=== PATIENT | female | born 1965 | race Hispanic/Latino ===

== ENCOUNTER 2020-04-14 19:54 | Emergency (ER) | payer OTHER ==
[2020-04-14] MEDS ORDERED: LIDOCAINE HCL-MPF 1% 2ML VIAL ONE (20:11)
[2020-04-14] MEDS ORDERED: CEFTRIAXONE SODIUM 1 GM ONE (20:11)
[2020-04-14] MEDS ORDERED: ACETAMINOPHEN-CODEINE 300/30MG TAB ONE (20:12)
== END 2020-04-14 20:37 | disposition home or self-care (01) ==
LOC: EDH 19:54
DX: H66.91 Otitis media, unspecified, right ear (principal); I10 Essential (primary) hypertension; Z98.890 Other specified postprocedural states
CPT/HCPCS: 96372; 99283; J0696; J3490

== ENCOUNTER 2020-06-06 14:15 | Emergency (ER) | payer MEDICAID, OTHER ==
[2020-06-06] MEDS ORDERED: KETOROLAC TROMETHAMINE 60 MG/2 ML VIAL ONE (14:38)
== END 2020-06-06 15:27 | disposition home or self-care (01) ==
LOC: EDH 14:15
DX: S62.655A Nondisplaced fracture of middle phalanx of left ring finger, initial encounter for closed fracture (principal); I10 Essential (primary) hypertension; Z98.890 Other specified postprocedural states; W23.0XXA Caught, crushed, jammed, or pinched between moving objects, initial encounter; Y93.89 Activity, other specified; Y92.89 Other specified places as the place of occurrence of the external cause; Y99.8 Other external cause status
CPT/HCPCS: 73140; 96372; 99283; J1885

== ENCOUNTER 2020-10-18 19:26 | Emergency (ER) | payer MEDICAID, OTHER ==
[~2020-10-18] VITALS: Ht 157.5 cm; Wt 86.2 kg
[2020-10-18 19:56] VITALS: BP 166/84
[2020-10-18] MEDS ORDERED: HYDROCODONE/ACETAMINOPHEN 5/325 MG TAB PO ONE (20:00)
[2020-10-18] MEDS ORDERED: ORPHENADRINE CITRATE 30 MG/ML ML IM ONE (20:00)
[2020-10-18 20:06] LABS: BASOPHILS % (AUTO) 0.5 % (0.0-5.0); EOSINOPHILS % (AUTO) 2.6 % (0.0-8.0); HEMATOCRIT 40.8 % (36-48); MEAN CORPUSCULAR HEMOGLOBIN 29.9 pg (27.0-33.0); MEAN CORPUSCULAR HGB CONC 33.6 g/dL (32.0-36.0); MEAN CORPUSCULAR VOLUME 89.1 fL (79-99); MONOCYTES % (AUTO) 8.3 % (3.0-13.0); NEUTROPHILS % (AUTO) 66.4 % (40.0-77.0); PLATELET COUNT (AUTO) 230 K/uL (130-400); RED BLOOD CELL COUNT(AUTO) 4.58 MIL/uL (4.00-5.50); RED CELL DISTRIBUTION WIDTH 12.6 % (11.0-15.5); WHITE BLOOD COUNT (AUTO) 6.5 K/uL (4.8-10.8)
[2020-10-18 20:17] LABS: CREATININE 0.7 mg/dL (0.5-1.5); POTASSIUM 3.2 mmol/L (3.5-5.1)
[2020-10-18 20:22] LABS: ALBUMIN 3.9 g/dL (3.5-5.0); BILIRUBIN,TOTAL 0.3 mg/dL (0.2-1.0); TOTAL PROTEIN, SERUM 7.5 g/dL (6.0-8.3)
[2020-10-18 20:52] LABS: APPEARANCE,URINE Clear (CLEAR); BILIRUBIN,URINE Negative (NEGATIVE); COLOR,URINE Yellow (YELLOW); GLUCOSE, URINE (UA) Negative (NEGATIVE); KETONES,URINE Negative (NEGATIVE); LEUKOCYTE ESTERASE ,URINE Moderate (NEGATIVE); NITRATE,URINE Negative (NEGATIVE); OCCULT BLOOD,URINE Trace (NEGATIVE); PH,URINE 6.5 (5.0-8.0); PROTEIN,URINE Negative (NEGATIVE)
[2020-10-18 21:13] LABS: BACTERIA,URINE Moderate /HPF (None Seen); MUCUS,URINE Few LPF (None Seen); SQUAMOUS EPITHELIAL CELL,UR Moderate /HPF (0-2)
[2020-10-18] MEDS ORDERED: 0.9% NACL 500ML IV.SOLN 500 ML IV ONE (22:00)
[2020-10-18] MEDS ORDERED: KCL 20 MEQ ERTAB PO ONE (22:00)
[2020-10-18] MEDS ORDERED: CEFTRIAXONE 1G VIAL IVP ONE (22:00)
[2020-10-18] MEDS ORDERED: ONDA4TAB10 PO (22:52)
[2020-10-18] MEDS ORDERED: MACR100 PO (22:52)
[2020-10-18] MEDS ORDERED: PRED20TA3 PO (22:52)
== END 2020-10-18 23:12 | disposition home or self-care (01) ==
LOC: EDH 19:26
DX: N39.0 Urinary tract infection, site not specified (principal); M13.811 Other specified arthritis, right shoulder; E86.0 Dehydration; E87.6 Hypokalemia; I10 Essential (primary) hypertension; Z79.899 Other long term (current) drug therapy
CPT/HCPCS: 36415; 70450; 72125; 73030; 80053; 81001; 82550; 83690; 84484; 85025; 87088; 93005; 96361; 96372; 96374; 99285; J0696; J2360; J7040

== ENCOUNTER 2020-12-17 20:49 | Emergency (ER) | payer OTHER ==
[~2020-12-17] VITALS: Ht 157.5 cm; Wt 85.7 kg
[~2020-12-17 20:49] MED LIST: MACR100 PO; ONDA4TAB10 PO; PRED20TA3 PO
[2020-12-17] MEDS ORDERED: DiphenhydrAMINE HCL 50 MG/ML VIAL IM ONE (22:00)
[2020-12-17] MEDS ORDERED: FAMOTIDINE 20MG TAB PO ONE (22:00)
[2020-12-17] MEDS ORDERED: PREDNISONE 20 MG TABLET PO ONE (22:00)
[2020-12-17] MEDS ORDERED: PRED20TA3 PO (22:02)
[2020-12-17 22:04] VITALS: BP 144/91
== END 2020-12-17 22:29 | disposition home or self-care (01) ==
LOC: EDH 20:49
DX: L50.9 Urticaria, unspecified (principal); I10 Essential (primary) hypertension; Z79.52 Long term (current) use of systemic steroids; Z79.899 Other long term (current) drug therapy
CPT/HCPCS: 96372; 99283; J1200

== ENCOUNTER 2021-07-31 23:40 | Emergency (ER) | payer OTHER ==
[~2021-07-31] VITALS: Ht 160 cm; Wt 87.1 kg
[2021-07-31 23:51] VITALS: BP 184/81
[2021-08-01] MEDS ORDERED: HYDR28.32 TP (00:18)
[2021-08-01] MEDS ORDERED: HYD25 PO (00:18)
[2021-08-01] MEDS ORDERED: HYDROXYZINE 25 MG TABLET ONE (00:23)
[2021-08-01] MEDS ORDERED: LIDOCAINE/PRILOCAINE CREAM 5GM TUBE TP SCH (00:30)
[2021-08-01] MEDS ORDERED: HYDROCORTISONE 1% CREAM 28G TP SCH (00:30)
[2021-08-01] MEDS ORDERED: HYDROXYZINE 50MG VIAL 50 MG/ML VIAL IM SCH (00:30)
== END 2021-08-01 00:32 | disposition home or self-care (01) ==
LOC: EDH 23:40
DX: S80.862A Insect bite (nonvenomous), left lower leg, initial encounter (principal); E11.9 Type 2 diabetes mellitus without complications; I10 Essential (primary) hypertension; Z79.899 Other long term (current) drug therapy; Z98.890 Other specified postprocedural states; W57.XXXA Bitten or stung by nonvenomous insect and other nonvenomous arthropods, initial encounter; Y93.89 Activity, other specified; Y92.89 Other specified places as the place of occurrence of the external cause; Y99.8 Other external cause status
CPT/HCPCS: 96372; 99283; J3490; J3410

== ENCOUNTER 2021-11-13 14:41 | Emergency (ER) | payer BC, OTHER ==
[~2021-11-13] VITALS: Ht 165.1 cm; Wt 86.2 kg
[~2021-11-13 14:41] MED LIST changes: +HYD25 PO; +HYDR28.32 TP
[2021-11-13 14:43] VITALS: BP 134/75
[2021-11-13] MEDS ORDERED: METH4TAB3 PO (17:44)
== END 2021-11-13 18:11 | disposition home or self-care (01) ==
LOC: EDH 14:41
DX: R51.9 Headache, unspecified (principal); M79.18 Myalgia, other site; M54.2 Cervicalgia; E11.9 Type 2 diabetes mellitus without complications; I10 Essential (primary) hypertension; Z79.52 Long term (current) use of systemic steroids; W57.XXXA Bitten or stung by nonvenomous insect and other nonvenomous arthropods, initial encounter; Y93.89 Activity, other specified; Y92.89 Other specified places as the place of occurrence of the external cause; Y99.8 Other external cause status
CPT/HCPCS: 70450

== ENCOUNTER 2022-04-28 03:23 | Emergency (ER) | payer BC ==
[~2022-04-28] VITALS: Ht 160 cm; Wt 86.2 kg
[~2022-04-28 03:23] MED LIST changes: +METH4TAB3 PO
[2022-04-28] MEDS ORDERED: CYCL10TA16 PO (03:45)
[2022-04-28] MEDS ORDERED: NAPR-1180 PO (03:45)
[2022-04-28] MEDS ORDERED: OXYC-38 PO (03:45)
[2022-04-28] MEDS ORDERED: ONDANSETRON ODT 4MG TAB SL ONE (04:00)
[2022-04-28] MEDS ORDERED: ORPHENADRINE CITRATE 30 MG/ML ML IM ONE (04:00)
[2022-04-28] MEDS ORDERED: MORPHINE 4 MG SYG IM ONE (04:00)
[2022-04-28 04:12] VITALS: BP 138/74
== END 2022-04-28 04:28 | disposition home or self-care (01) ==
LOC: EDH 03:23
DX: M62.838 Other muscle spasm (principal); E11.9 Type 2 diabetes mellitus without complications; I10 Essential (primary) hypertension; Z79.52 Long term (current) use of systemic steroids
CPT/HCPCS: 99284; 96372 ×2; J2270; J2360

== ENCOUNTER 2022-06-17 16:47 | Emergency (ER) | payer BC, OTHER ==
[~2022-06-17] VITALS: Ht 152.4 cm; Wt 85.7 kg
[~2022-06-17 16:47] MED LIST changes: +CYCL10TA16 PO; +NAPR-1180 PO; +OXYC-38 PO
[2022-06-17 18:05] LABS: BASOPHILS % (AUTO) 0.3 % (0.0-5.0); EOSINOPHILS % (AUTO) 2.4 % (0.0-8.0); HEMATOCRIT 39.5 % (36-48); LYMPHOCYTES % (AUTO) 21.8 % (21.0-51.0); MEAN CORPUSCULAR HEMOGLOBIN 29.6 pg (27.0-33.0); MEAN CORPUSCULAR HGB CONC 33.2 g/dL (32.0-36.0); MEAN CORPUSCULAR VOLUME 89.4 fL (79-99); MONOCYTES % (AUTO) 8.3 % (3.0-13.0); NEUTROPHILS % (AUTO) 66.9 % (40.0-77.0); PLATELET COUNT (AUTO) 249 K/uL (130-400); RED BLOOD CELL COUNT(AUTO) 4.42 MIL/uL (4.00-5.50); RED CELL DISTRIBUTION WIDTH 12.7 % (11.0-15.5); WHITE BLOOD COUNT (AUTO) 5.9 K/uL (4.8-10.8)
[2022-06-17 18:26] LABS: POTASSIUM 3.3 mmol/L (3.5-5.1)
[2022-06-17 18:31] LABS: ALBUMIN 3.9 g/dL (3.5-5.0)
[2022-06-17] MEDS ORDERED: CARB200C7 PO (19:41)
[2022-06-17 19:56] VITALS: BP 132/65
== END 2022-06-17 19:58 | disposition home or self-care (01) ==
LOC: EDH 16:47
DX: G50.0 Trigeminal neuralgia (principal); E11.9 Type 2 diabetes mellitus without complications; I10 Essential (primary) hypertension; Z79.52 Long term (current) use of systemic steroids
CPT/HCPCS: 36415; 80053; 85025

== ENCOUNTER 2022-09-25 | Emergency (ER) | payer BC ==
[~2022-09-25] VITALS: Ht 157.5 cm; Wt 87.1 kg
[~2022-09-25] MED LIST changes: +CARB200C7 PO
[2022-09-25] MEDS ORDERED: KETOROLAC 60 MG VIAL (30MG/ML) IM ONE (00:30)
[2022-09-25] MEDS ORDERED: IBUP-1493 PO (00:36)
[2022-09-25] MEDS ORDERED: LIDOP TD (00:59)
[2022-09-25 01:06] VITALS: BP 147/71; PULSE 62; RESP 16; O2SAT 98
== END 2022-09-25 01:07 | disposition home or self-care (01) ==
LOC: EDH
DX: R07.89 Other chest pain (principal); E11.9 Type 2 diabetes mellitus without complications; I10 Essential (primary) hypertension; Z79.1 Long term (current) use of non-steroidal anti-inflammatories (NSAID); Z79.52 Long term (current) use of systemic steroids; W18.39XA Other fall on same level, initial encounter; Y93.01 Activity, walking, marching and hiking; Y92.89 Other specified places as the place of occurrence of the external cause; Y99.8 Other external cause status
CPT/HCPCS: 99284; 71101; 96372; J1885

== ENCOUNTER 2022-11-26 12:34 | Emergency (ER) | payer BC ==
[~2022-11-26] VITALS: Ht 160 cm; Wt 88.0 kg
[~2022-11-26 12:34] MED LIST changes: +IBUP-1493 PO; +LIDOP TD
[2022-11-26 14:14] VITALS: BP 144/60; PULSE 49; RESP 16; O2SAT 97
== END 2022-11-26 14:15 | disposition home or self-care (01) ==
LOC: EDH 12:34
DX: M25.562 Pain in left knee (principal); I10 Essential (primary) hypertension; E11.9 Type 2 diabetes mellitus without complications; Z79.899 Other long term (current) drug therapy; Z98.890 Other specified postprocedural states; W10.8XXA Fall (on) (from) other stairs and steps, initial encounter; Y93.89 Activity, other specified; Y92.89 Other specified places as the place of occurrence of the external cause; Y99.8 Other external cause status
CPT/HCPCS: 73562

== ENCOUNTER 2023-04-01 17:41 | Emergency (ER) | payer BC ==
[~2023-04-01] VITALS: Ht 157.5 cm; Wt 86.2 kg
[2023-04-01 18:58] LABS: BASOPHILS # (AUTO) 0.02 K/uL (0.00-0.20); BASOPHILS % (AUTO) 0.3 % (0.0-5.0); EOSINOPHILS # (AUTO) 0.16 K/uL (0.00-0.70); EOSINOPHILS % (AUTO) 2.8 % (0.0-8.0); HEMATOCRIT 42.4 % (36-48); IMMATURE GRANULOCYTE ABSOLUTE 0.01 K/uL (0-1); LYMPHOCYTES # (AUTO) 0.8 K/uL (1.0-4.8); LYMPHOCYTES % (AUTO) 14.3 % (21.0-51.0); MEAN CORPUSCULAR HEMOGLOBIN 30.2 pg (27.0-33.0); MEAN CORPUSCULAR HGB CONC 32.1 g/dL (32.0-36.0); MEAN CORPUSCULAR VOLUME 94.2 fL (79-99); MONOCYTES # (AUTO) 0.6 K/uL (0.1-1.0); MONOCYTES % (AUTO) 9.6 % (3.0-13.0); NEUTROPHILS # (AUTO) 4.2 K/uL (1.8-7.7); NEUTROPHILS % (AUTO) 72.8 % (40.0-77.0); PLATELET COUNT (AUTO) 186 K/uL (130-400); RED CELL DISTRIBUTION WIDTH 13.7 % (11.0-15.5); WHITE BLOOD COUNT (AUTO) 5.7 K/uL (4.8-10.8)
[2023-04-01 19:09] LABS: CREATININE 1.1 mg/dL (0.5-1.5); POTASSIUM 3.4 mmol/L (3.5-5.1)
[2023-04-01 19:23] LABS: ALBUMIN 3.4 g/dL (3.5-5.0); BILIRUBIN,TOTAL 0.6 mg/dL (0.2-1.0); TOTAL PROTEIN, SERUM 6.6 g/dL (6.0-8.3)
[2023-04-02 00:58] LABS: ADD UA MICROSCOPIC YES; APPEARANCE,URINE CLOUDY (CLEAR); BILIRUBIN,URINE NEGATIVE (NEGATIVE); COLOR,URINE YELLOW (YELLOW); GLUCOSE, URINE (UA) NEGATIVE (NEGATIVE); KETONES,URINE NEGATIVE (NEGATIVE); LEUKOCYTE ESTERASE ,URINE 500 Leu/uL (NEGATIVE); NITRATE,URINE NEGATIVE (NEGATIVE); OCCULT BLOOD,URINE NEGATIVE (NEGATIVE); PROTEIN,URINE NEGATIVE (NEGATIVE); UROBILINOGEN,URINE 0.2 mg/dL (0.2-1.0)
[2023-04-02 01:02] LABS: BACTERIA,URINE RARE /HPF (None Seen); MUCUS,URINE FEW LPF (None Seen); OTHER CASTS, URINE 5 /LPF (None Seen); SQUAMOUS EPITHELIAL CELL,UR FEW /HPF (0-2); WBC,URINE 51-100 /HPF (0-1)
[2023-04-02] MEDS: ONDANSETRON ODT 4MG TAB SL ONE (01:06)
[2023-04-02] MEDS: KCL 20 MEQ ERTAB PO ONE (01:07)
[2023-04-02 01:15] LABS: SARS-CoV-2, RNA, NAAT NEGATIVE SARS CoV-2 (NEGATIVE)
[2023-04-02 01:19] LABS: INFLUENZA TYPE A Negative For Type A (NEGATIVE); INFLUENZA TYPE B Negative For Type B (NEGATIVE)
[2023-04-02] MEDS: HALOPERIDOL INJ 5 MG/ML VIAL IM SCH (02:10)
[2023-04-02 02:41] VITALS: BP 117/65; PULSE 85; RESP 16; O2SAT 96
[2023-04-02] MEDS ORDERED: OMEP40CA21 PO (03:05)
[2023-04-02] MEDS ORDERED: ONDA-104 PO (03:05)
== END 2023-04-02 03:28 | disposition home or self-care (01) ==
LOC: EDH 17:41
DX: K80.20 Calculus of gallbladder without cholecystitis without obstruction (principal); R11.2 Nausea with vomiting, unspecified; E11.9 Type 2 diabetes mellitus without complications; I10 Essential (primary) hypertension; Z79.1 Long term (current) use of non-steroidal anti-inflammatories (NSAID); Z79.52 Long term (current) use of systemic steroids; Z20.822 Contact with and (suspected) exposure to COVID-19
CPT/HCPCS: 99284; 87635; 84484; 80053; 83690; 85025; 87088; 87804 ×2; 81001; 36415; 93005; 76705; 96372; J1630

== ENCOUNTER 2023-06-14 10:54 | Emergency (ER) | payer BC ==
[~2023-06-14] VITALS: Ht 157.5 cm; Wt 83.5 kg
[~2023-06-14 10:54] MED LIST changes: -CYCL10TA16 PO; -HYD25 PO; -IBUP-1493 PO; -MACR100 PO; -METH4TAB3 PO; -NAPR-1180 PO; +OMEP40CA21 PO; +ONDA-104 PO; -ONDA4TAB10 PO; -PRED20TA3 PO
[2023-06-14 13:16] LABS: BASOPHILS # (AUTO) 0.02 K/uL (0.00-0.20); BASOPHILS % (AUTO) 0.2 % (0.0-5.0); EOSINOPHILS # (AUTO) 0.11 K/uL (0.00-0.70); EOSINOPHILS % (AUTO) 1.1 % (0.0-8.0); HEMATOCRIT 39.1 % (36-48); IMMATURE GRANULOCYTE ABSOLUTE 0.03 K/uL (0-1); LYMPHOCYTES # (AUTO) 0.9 K/uL (1.0-4.8); LYMPHOCYTES % (AUTO) 9.5 % (21.0-51.0); MEAN CORPUSCULAR HEMOGLOBIN 30.3 pg (27.0-33.0); MEAN CORPUSCULAR VOLUME 89.1 fL (79-99); MONOCYTES # (AUTO) 0.6 K/uL (0.1-1.0); MONOCYTES % (AUTO) 5.7 % (3.0-13.0); NEUTROPHILS # (AUTO) 8.1 K/uL (1.8-7.7); NEUTROPHILS % (AUTO) 83.2 % (40.0-77.0); PLATELET COUNT (AUTO) 220 K/uL (130-400); RED BLOOD CELL COUNT(AUTO) 4.39 MIL/uL (4.00-5.50); RED CELL DISTRIBUTION WIDTH 12.2 % (11.0-15.5); WHITE BLOOD COUNT (AUTO) 9.7 K/uL (4.8-10.8)
[2023-06-14 13:18] LABS: APPEARANCE,URINE CLEAR (CLEAR); BILIRUBIN,URINE SMALL mg/dL (NEGATIVE); COLOR,URINE YELLOW (YELLOW); GLUCOSE, URINE (UA) NEGATIVE (NEGATIVE); KETONES,URINE 5 mg/dL (NEGATIVE); LEUKOCYTE ESTERASE ,URINE SMALL Leu/uL (NEGATIVE); NITRATE,URINE NEGATIVE (NEGATIVE); OCCULT BLOOD,URINE NEGATIVE (NEGATIVE); PH,URINE 5.5 (5.0-8.0); PROTEIN,URINE TRACE mg/dL (NEGATIVE)
[2023-06-14 13:21] LABS: ADD UA MICROSCOPIC YES
[2023-06-14 13:33] LABS: CREATININE 0.7 mg/dL (0.5-1.0); POTASSIUM 3.2 mmol/L (3.5-5.1)
[2023-06-14 13:37] LABS: ALBUMIN 3.5 g/dL (3.5-5.0); BILIRUBIN,TOTAL 0.4 mg/dL (0.2-1.0); TOTAL PROTEIN, SERUM 6.8 g/dL (6.0-8.3)
[2023-06-14 13:39] LABS: BACTERIA,URINE Few /HPF (None Seen); MUCUS,URINE Moderate LPF (None Seen); RBC,URINE 0-1 /HPF (0-1); SQUAMOUS EPITHELIAL CELL,UR 0-2 /HPF (0-2)
[2023-06-14] MEDS: KETOROLAC 30MG VIAL (30MG/ML) IM ONE (14:09)
[2023-06-14] MEDS: ONDANSETRON 4MG TABLET PO ONE (14:09)
[2023-06-14 15:04] VITALS: BP 144/96; PULSE 82; RESP 17; O2SAT 95
== END 2023-06-14 15:05 | disposition home or self-care (01) ==
LOC: EDH 10:54
DX: K80.50 Calculus of bile duct without cholangitis or cholecystitis without obstruction (principal); E11.9 Type 2 diabetes mellitus without complications; I10 Essential (primary) hypertension
CPT/HCPCS: 99284; 74176; 80053; 83690; 85025; 81001; 36415; 96372; Q0162; J1885

== ENCOUNTER 2024-05-04 18:08 | Emergency (ER) | payer BC ==
[~2024-05-04] VITALS: Ht 154.9 cm; Wt 84.4 kg
--- NOTE | 2024-05-04 18:18 | EKG ---
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
[2024-05-04 18:37] LABS: BASOPHILS # (AUTO) 0.03 K/uL (0.00-0.20); BASOPHILS % (AUTO) 0.5 % (0.0-5.0); EOSINOPHILS # (AUTO) 0.09 K/uL (0.00-0.70); EOSINOPHILS % (AUTO) 1.4 % (0.0-8.0); HEMATOCRIT 42.6 % (36-48); IMMATURE GRANULOCYTE ABSOLUTE 0.02 K/uL (0-1); LYMPHOCYTES # (AUTO) 1.4 K/uL (1.0-4.8); LYMPHOCYTES % (AUTO) 21.4 % (21.0-51.0); MEAN CORPUSCULAR HEMOGLOBIN 30.4 pg (27.0-33.0); MEAN CORPUSCULAR HGB CONC 33.8 g/dL (32.0-36.0); MEAN CORPUSCULAR VOLUME 89.9 fL (79-99); MONOCYTES # (AUTO) 0.4 K/uL (0.1-1.0); MONOCYTES % (AUTO) 6.1 % (3.0-13.0); NEUTROPHILS # (AUTO) 4.5 K/uL (1.8-7.7); NEUTROPHILS % (AUTO) 70.3 % (40.0-77.0); PLATELET COUNT (AUTO) 233 K/uL (130-400); RED BLOOD CELL COUNT(AUTO) 4.74 MIL/uL (4.00-5.50); RED CELL DISTRIBUTION WIDTH 12.1 % (11.0-15.5); WHITE BLOOD COUNT (AUTO) 6.4 K/uL (4.8-10.8)
[2024-05-04 18:41] LABS: APPEARANCE,URINE CLEAR (CLEAR); BILIRUBIN,URINE NEGATIVE (NEGATIVE); COLOR,URINE COLORLESS (YELLOW); GLUCOSE, URINE (UA) NEGATIVE (NEGATIVE); KETONES,URINE NEGATIVE (NEGATIVE); LEUKOCYTE ESTERASE ,URINE NEGATIVE Leu/uL (NEGATIVE); NITRATE,URINE NEGATIVE (NEGATIVE); OCCULT BLOOD,URINE NEGATIVE (NEGATIVE); PH,URINE 7.5 (5.0-8.0); PROTEIN,URINE NEGATIVE (NEGATIVE); UROBILINOGEN,URINE 0.2 mg/dL (0.2-1.0)
[2024-05-04 18:48] LABS: CREATININE 0.7 mg/dL (0.5-1.0); POTASSIUM 3.7 mmol/L (3.5-5.1)
[2024-05-04 18:50] LABS: HCG,QUALITATIVE URINE NEGATIVE (NEGATIVE)
[2024-05-04 18:51] LABS: BACTERIA,URINE RARE /HPF (None Seen); RBC,URINE 0-1 /HPF (0-1); SQUAMOUS EPITHELIAL CELL,UR RARE /HPF (0-2)
--- NOTE | 2024-05-04 18:52 | HMCIMG ---
PORTABLE CHEST RADIOGRAPH INDICATION: Chest pain COMPARISON: None FINDINGS: Heart size is normal. The pulmonary vascularity and santana appear normal. No abnormal pulmonary parenchymal opacity or consolidation identified. No significant pleural effusion noted. No pneumothorax detected. IMPRESSION: No radiographic evidence for any acute cardiopulmonary process.
[2024-05-04 19:55] VITALS: BP 153/79; PULSE 71; RESP 18; TEMP 98.8; O2SAT 96
--- NOTE | 2024-05-04 19:59 | ERN ---
General Chief Complaint: Chest Pain Stated Complaint: CHEST PAIN Time Seen by MD: 18:12 Time Seen by Midlevel: 18:12 Source: patient History of Present Illness Initial Comments 59-year-old female presents to the emergency department due to chest pain. Patient reports pain initiated at the right ear down the neck to the chest. At the moment patient was having some difficulty breathing and pain have now subsided. Denies fever, difficulty swallowing, nausea, vomiting, vision changes, headache or further associated symptoms. PMHx HTN, DM Allergies: Coded Allergies: No Known Allergies (Unverified Allergy, Unknown, 06/06/20) Home Meds Active Scripts Ondansetron HCl (Ondansetron HCl) 4 Mg Tablet, 4 MG PO TIDP PRN for VOMITING, #20 TAB Prov:MARCOS THOMPSON MD 04/02/23 Omeprazole (Omeprazole) 40 Mg Capsule.dr, 40 MG PO DAILY, #30 CAP Prov:MARCOS THOMPSON MD 04/02/23 Lidocaine (Lidoderm Patch 5%) 1 Patch Patch, 1 PATCH TD DAILY for 30 Days, #30 ADH.PATCH 0 Refills Prov:MARCOS THOMPSON MD 09/25/22 Carbamazepine (Carbamazepine) 200 Mg Cpmp.12hr, 200 MG PO BID for 15 Days, #30 TAB Prov:KARINE DIAZ MD 06/17/22 Oxycodone HCl/Acetaminophen (Percocet 5-325 mg Tablet) 1 Each Tablet, 1 EACH PO Q6H for pain, #16 TAB 0 Refills Prov:DAVID BALL MD 04/28/22 Hydrocortisone (Hydrocortisone 1% 28.35GM) 28.35 Gm Crm, 1 STRIP TP BID, #1 APPL Prov:MASSIMO BORGES MD 08/01/21 Past Medical History Past Medical History: Diabetes-Type II, Gallstones, Hypertension Medical History Other: GASTRITIS Past Surgical History: Cholecystectomy, Family History Family History: Negative Social History Social History: Negative, Lives with family Female( History) History: Not Applicable ROS Dictation Constitutional: Negative for fever,chills, and weight loss Eyes: Negative for injury, pain,redness, and discharge ENT: Positive for right ear pain Negative for injury,pain or swelling Cardiovascular: Positive for chest pain Negative for palpitations, and edema Respiratory: Positive for difficulty breathing Negative for cough, and wheezing, Abdomen/GI: Negative for abdominal pain, nausea, vomiting, diarrhea, and constipation Back: Negative for injury and pain : Negative for painful urination, bleeding or discharge MS/Extremity: Negative for injury and deformity Skin: Negative for rash, and discoloration Neuro: Negative for headache, weakness, numbness, tingling, and seizure Psych: Negative for suicide ideation, homicidal ideation, and hallucinations Physical Exam Physical Exam Dictation General: awake, alert, no acute distress Head/Face: Normocephalic, atraumatic Eyes: PERRL, EOMI, normal conjunctiva ENT: oral cavity clear, TMs clear, oral mucosa moist Neck: Supple, normal range of motion Cardiovascular: RRR, normal S1/S2 Respiratory: CTAB, no respiratory distress, no rales or wheezes Abdomen: Soft, non-tender, non-distended, no guarding or rebound. Skin: Warm, dry, normal turgor, no rash MS/Extremity: Pulses equal, no cyanosis, neurovascular intact, FROM Neuro: COAx4, GCS 15, strength 5/5, CN 2-12 intact, normal cerebellar exam, normal gait, Psych: Normal behavior, mood, and affect normal Results Laboratory and Microbiology Lab and Micro Result Laboratory Tests Test 05/04/24 18:10 05/04/24 18:20 05/04/24 19:13 Sodium Level 140 mmol/L (136-145) Potassium Level 3.7 mmol/L (3.5-5.1) Chloride Level 99 mmol/L (101-111) L Carbon Dioxide Level 32 mmol/L (21-32) Blood Urea Nitrogen 16 mg/dL (7-18) Creatinine 0.7 mg/dL (0.5-1.0) Glomerular Filtration Rate Calc 101 mL/min (>90) Random Glucose 168 mg/dL (70-105) H Total Calcium 9.6 mg/dL (8.5-10.1) White Blood Count 6.4 K/uL (4.8-10.8) Red Blood Count 4.74 MIL/uL (4.00-5.50) Hemoglobin 14.4 g/dL (12.0-16.0) Hematocrit 42.6 % (36-48) Mean Corpuscular Volume 89.9 fL (79-99) Mean Corpuscular Hemoglobin 30.4 pg (27.0-33.0) Mean Corpuscular Hemoglobin Concent 33.8 g/dL (32.0-36.0) Red Cell Distribution Width 12.1 % (11.0-15.5) Platelet Count 233 K/uL (130-400) Mean Platelet Volume 11.6 fL (7.5-10.5) H Immature Granulocyte % (Auto) 0.3 % (0-1) Neutrophils (%) (Auto) 70.3 % (40.0-77.0) Lymphocytes (%) (Auto) 21.4 % (21.0-51.0) Monocytes (%) (Auto) 6.1 % (3.0-13.0) Eosinophils (%) (Auto) 1.4 % (0.0-8.0) Basophils (%) (Auto) 0.5 % (0.0-5.0) Neutrophils # (Auto) 4.5 K/uL (1.8-7.7) Lymphocytes # (Auto) 1.4 K/uL (1.0-4.8) Monocytes # (Auto) 0.4 K/uL (0.1-1.0) Eosinophils # (Auto) 0.09 K/uL (0.00-0.70) Basophils # (Auto) 0.03 K/uL (0.00-0.20) Absolute Immature Granulocyte (auto 0.02 K/uL (0-1) Nucleated Red Blood Cells 0.0 % (0.0-0.19) Urine Color COLORLESS (YELLOW) Urine Appearance CLEAR (CLEAR) Urine pH 7.5 (5.0-8.0) Urine Specific [place] 1.008 (1.001-1.031) Urine Protein NEGATIVE mg/dL (NEGATIVE) Urine Glucose (UA) NEGATIVE mg/dL (NEGATIVE) Urine Ketones NEGATIVE mg/dL (NEGATIVE) Urine Occult Blood NEGATIVE (NEGATIVE) Urine Nitrate NEGATIVE (NEGATIVE) Urine Bilirubin NEGATIVE mg/dL (NEGATIVE) Urine Urobilinogen 0.2 mg/dL (0.2-1.0) Urine Leukocyte Esterase NEGATIVE Matthieu/uL Urine RBC 0-1 /HPF (0-1) Urine WBC 2-5 /HPF (0-1) H Urine Squamous Epithelial Cells RARE /HPF (0-2) Urine Bacteria RARE /HPF (None Seen) Urine HCG, Qualitative NEGATIVE (NEGATIVE) Troponin I High Sensitivity 14 ng/L (4-50) 14 ng/L (4-50) Labs Reviewed?: Yes EKG/XRAY/US/CT/MRI EKG Comment Date: 05/04/2024 Time: 18 17 Rate: 69 EKG interpretation: Normal sinus rhythm, probable left atrial enlargement, left ventricular hypertrophy, no STEMI Reviewed by ED Attending X-RAY Comment REASON: Chest pain ORDERING PHYSICIAN: DANIEL CAMARENA PROCEDURE: CXR1VW - CHEST 1VW PORTABLE CHEST RADIOGRAPH INDICATION: Chest pain COMPARISON: None FINDINGS: Heart size is normal. The pulmonary vascularity and santana appear normal. No abnormal pulmonary parenchymal opacity or consolidation identified. No significant pleural effusion noted. No pneumothorax detected. IMPRESSION: No radiographic evidence for any acute cardiopulmonary process. DICTATED BY: LEE BONILLA MD DATE: 05/04/24 1850 MDM MDM: Differential diagnosis: ID, ACS, musculoskeletal Rationale: 59-year-old female presents to the emergency department due to chest pain. Patient reports pain initiated at the right ear down the neck to the chest. At the moment patient was having some difficulty breathing and pain have now subsided. Denies fever, difficulty swallowing, nausea, vomiting, vision changes, headache or further associated symptoms. PMHx HTN, DM Per physical examination patient is in no acute distress, nonlabored breathing, abdomen is soft nontender, appears comfortable. Denies any current symptoms. Labs obtained are nonspecific, troponin within normal limits, UA negative for urinary tract infection. Chest x-ray indicates no acute abnormalities. Heart score low risk. Patient was educated on findings and diagnosis. Admission versus discharge was discussed with patient. Patient requested to be discharged and follow up outpatient with PCP. Return to the emergency department if any worsening symptoms. Patient verbalized understanding. Patient stable for discharge. There are no social concerns with this patient. I independently interpreted the test that were performed, results were reviewed by me and considered findings on radiology if ordered. Medical management and examination interpretation discussions were had by me with other qualified healthcare professionals as indicated for the patient's care. ED Course Orders Procedure Category Date Status Time Cbc With Differential LAB 05/04/24 Complete 18:12 Basic Metabolic Panel LAB 05/04/24 Complete 18:12 Urinalysis LAB 05/04/24 Complete W/Microscopic 18:12 Troponin I High LAB 05/04/24 Complete Sensitivity 18:12 ,Urine Test LAB 05/04/24 Complete 18:12 Chest 1vw RAD 05/04/24 Resulted 18:12 12 Lead Ekg Tracing- EKG 05/04/24 Complete Technical 18:12 Troponin I High LAB 05/04/24 Complete Sensitivity 19:04 Vital Signs Date Time Temp Pulse Resp B/P (MAP) Pulse Ox O2 Delivery O2 Flow Rate FiO2 05/04/24 19:55 98.8 71 18 153/79 96 Room Air* 0 21 05/04/24 19:30 98.8 71 18 170/94 99 Room Air* 0 21 05/04/24 18:31 71 18 143/82 98 Room Air* 0 21 05/04/24 18:09 98.8 74 20 163/93 99 Room Air 0 DX & DISP Disposition: Discharge Departure Impression: Primary Impression: Chest pain with low risk for cardiac etiology Condition: Stable Additional Instructions: Discharge home. Rest. Follow up with primary care DrPb in 24 hours. Return to the ER for any acute changes or worsening symptoms. If any medications were prescribed take as directed. Okay to continue home medications unless otherwise discussed during your visit in the emergency room today. Patient was also advised to follow-up with primary care physician in 1 to 2 days for continued monitoring. Referrals: DC GRIFFIN NP (PCP) I performed the substantive portion of the visit. I have reviewed and personally made and approve the management plan that is documented in the notes by myself or the VERN. I acknowledge full responsibility for the patient's management plan. DANIEL CAMARENA May 04, 2024 19:59
== END 2024-05-04 20:05 | disposition home or self-care (01) ==
LOC: EDH 18:08
DX: R07.89 Other chest pain (principal); E11.9 Type 2 diabetes mellitus without complications; I10 Essential (primary) hypertension; I21.9 Acute myocardial infarction, unspecified; Z79.899 Other long term (current) drug therapy; Z90.49 Acquired absence of other specified parts of digestive tract; Z98.890 Other specified postprocedural states
CPT/HCPCS: 36415; 71045; 80048; 81001; 81025; 84484; 85025; 93005; 99284

== ENCOUNTER 2024-05-11 08:57 | Emergency (ER) | payer BC ==
[~2024-05-11] VITALS: Ht 160 cm; Wt 85.3 kg
--- NOTE | 2024-05-11 09:04 | ERN ---
General Chief Complaint: Abdominal Pain Stated Complaint: ABDOMINAL PAIN Time Seen by MD: 09:03 History of Present Illness Initial Comments 59-year-old presents for periumbilical cramping and vomiting. Patient reports began a three and this morning. She was had multiple episodes of vomiting. No diarrhea. No fever. No cough congestion sore throat. She reports that a younger family member has similar symptoms. Allergies: Coded Allergies: No Known Allergies (Unverified Allergy, Unknown, 06/06/20) Home Meds Active Scripts Ondansetron HCl (Ondansetron HCl) 4 Mg Tablet, 4 MG PO TIDP PRN for VOMITING, #20 TAB Prov:MARCOS THOMPSON MD 04/02/23 Omeprazole (Omeprazole) 40 Mg Capsule.dr, 40 MG PO DAILY, #30 CAP Prov:MARCOS THOMPSON MD 04/02/23 Lidocaine (Lidoderm Patch 5%) 1 Patch Patch, 1 PATCH TD DAILY for 30 Days, #30 ADH.PATCH 0 Refills Prov:MARCOS THOMPSON MD 09/25/22 Carbamazepine (Carbamazepine) 200 Mg Cpmp.12hr, 200 MG PO BID for 15 Days, #30 TAB Prov:KARINE DIAZ MD 06/17/22 Oxycodone HCl/Acetaminophen (Percocet 5-325 mg Tablet) 1 Each Tablet, 1 EACH PO Q6H for pain, #16 TAB 0 Refills Prov:DAVID BALL MD 04/28/22 Hydrocortisone (Hydrocortisone 1% 28.35GM) 28.35 Gm Crm, 1 STRIP TP BID, #1 APPL Prov:MASSIMO BORGES MD 08/01/21 Past Medical History Past Medical History: Diabetes-Type II, GERD, Hypertension Medical History Other: GASTRITIS Past Surgical History: Cholecystectomy, Family History Family History: Negative Social History Social History: Negative, Lives with family Female( History) History: Not Applicable ROS Dictation CONSTITUTIONAL: No chills, no fever, no weakness, no diaphoresis, no malaise. HEAD/FACE: No signs of trauma. EENT: No eye pain, no blurred vision, no tearing, no double vision, no ear pain, no ear discharge, no nose pain, no nasal congestion, no throat pain, no throat swelling, no mouth pain. RESPIRATORY: No cough, no orthopnea, no SOB, no stridor, no wheezing. CARDIOVASCULAR: No chest pain, no edema, no palpitations, no syncope. GASTROINTESTINAL/ABDOMINAL: Abdominal pain and vomiting GENITOURINARY: No abnormal discharge, no dysuria, no frequent urination, no hematuria. No complaints of pain in the genitals. MUSCULOSKELETAL: No back pain, no gout, no joint pain, no joint swelling, no muscle pain, no muscle stiffness, no neck pain. INTEGUMENTARY: No change in color, no change in hair/nails, no dryness, no lesion, no lumps, no rash. NEUROLOGICAL/PSYCH: No anxiety, not depressed, no emotional problem, no headache, no numbness, no pre-existing deficit, no history of seizures, no tremors, no weakness. HEMATOLOGIC/LYMPHATIC: Not anemic, no history of blood clots, no apparent bleeding, no bruising, glands not swollen. All Systems Negative, Except as Noted. Physical Exam Physical Exam Dictation VITAL SIGNS: Reviewed. GENERAL APPEARANCE: Alert, oriented x3, no acute distress, obese. HEAD AND FACE: Non-traumatic. EYES: PERRL, pink conjunctivas, eyelid no trauma, anterior chamber clear. EARS: Pinnas intact and no signs of trauma or erythema. Ear canals clear and no discharge. TMs no erythema. NOSE: No discharge, no bleeding. OROPHARYNX: Mouth normal, teeth no caries, tongue pink. Pharynx clear, no erythema. Tonsils no exudates, no abscesses noted. Mucous membrane moist. NECK: Supple, non-tender, no thyromegaly, no masses, no JVD, no bruits. BREAST: Deferred. CHEST: No tenderness, no crepitus, no paradoxical movement, no retractions. LUNGS: Clear, well-ventilated, symmetric, no rales, no wheezing, no rhonchi, no stridor, good breath sounds bilaterally. HEART: Regular rate, regular rhythm, no murmur, no gallops. VASCULAR: No peripheral edema. ABDOMEN: Soft, positive bowel sounds, nondistended, no guarding, nontender, no rebound, no masses no hepatomegaly, no splenomegaly, no Agosto's sign, no hernias. RECTAL: Deferred. GENITAL: Deferred. NEUROLOGICAL: Normal speech, gross motor function intact, gross sensory function intact. MUSCULOSKELETAL: Neck nontender, full range of motion, back nontender, full range of motion. EXTREMITIES: Nontender, full range of motion. SKIN: Color pink, dry, no turgor, no rash, no lacerations, no abrasions, no contusions. LYMPHATICS: Deferred. Results Laboratory and Microbiology Lab and Micro Result Laboratory Tests Test 05/11/24 09:12 White Blood Count 15.1 K/uL (4.8-10.8) H Red Blood Count 4.88 MIL/uL (4.00-5.50) Hemoglobin 14.9 g/dL (12.0-16.0) Hematocrit 43.9 % (36-48) Mean Corpuscular Volume 90.0 fL (79-99) Mean Corpuscular Hemoglobin 30.5 pg (27.0-33.0) Mean Corpuscular Hemoglobin Concent 33.9 g/dL (32.0-36.0) Red Cell Distribution Width 12.3 % (11.0-15.5) Platelet Count 252 K/uL (130-400) Mean Platelet Volume 11.7 fL (7.5-10.5) H Immature Granulocyte % (Auto) 0.7 % (0-1) Neutrophils (%) (Auto) 87.6 % (40.0-77.0) H Lymphocytes (%) (Auto) 4.8 % (21.0-51.0) L Monocytes (%) (Auto) 6.2 % (3.0-13.0) Eosinophils (%) (Auto) 0.5 % (0.0-8.0) Basophils (%) (Auto) 0.2 % (0.0-5.0) Neutrophils # (Auto) 13.2 K/uL (1.8-7.7) H Lymphocytes # (Auto) 0.7 K/uL (1.0-4.8) L Monocytes # (Auto) 0.9 K/uL (0.1-1.0) Eosinophils # (Auto) 0.07 K/uL (0.00-0.70) Basophils # (Auto) 0.03 K/uL (0.00-0.20) Absolute Immature Granulocyte (auto 0.11 K/uL (0-1) Nucleated Red Blood Cells 0.0 % (0.0-0.19) White Cell Morphology Comment See comments Urine Color YELLOW (YELLOW) Urine Appearance CLEAR (CLEAR) Urine pH 6.0 (5.0-8.0) Urine Specific [place] 1.026 (1.001-1.031) Urine Protein 10 mg/dL (NEGATIVE) H Urine Glucose (UA) NEGATIVE mg/dL (NEGATIVE) Urine Ketones NEGATIVE mg/dL (NEGATIVE) Urine Occult Blood NEGATIVE (NEGATIVE) Urine Nitrate NEGATIVE (NEGATIVE) Urine Bilirubin NEGATIVE mg/dL (NEGATIVE) Urine Urobilinogen 0.2 mg/dL (0.2-1.0) Urine Leukocyte Esterase 25 Matthieu/uL (NEGATIVE) H Urine RBC 2-5 /HPF (0-1) H Urine WBC 2-5 /HPF (0-1) H Urine Squamous Epithelial Cells FEW /HPF (0-2) Urine Bacteria None /HPF (None Seen) Sodium Level 140 mmol/L (136-145) Potassium Level 3.6 mmol/L (3.5-5.1) Chloride Level 97 mmol/L (101-111) L Carbon Dioxide Level 34 mmol/L (21-32) H Blood Urea Nitrogen 21 mg/dL (7-18) H Creatinine 0.7 mg/dL (0.5-1.0) Glomerular Filtration Rate Calc 101 mL/min (>90) Random Glucose 179 mg/dL (70-105) H Total Calcium 9.4 mg/dL (8.5-10.1) Total Bilirubin 0.9 mg/dL (0.2-1.0) Direct Bilirubin 0.2 mg/dL (0.0-0.3) Aspartate Amino Transf (AST/SGOT) 33 U/L (10-37) Alanine Aminotransferase (ALT/SGPT) 56 U/L (12-78) Alkaline Phosphatase 88 U/L (50-136) Total Creatine Kinase 93 U/L (21-232) Total Protein 7.4 g/dL (6.0-8.3) Albumin 3.9 g/dL (3.5-5.0) Lipase 24 U/L (16-77) MDM CC: Abdominal pain and vomiting Historian: Patient Comorbidities: Diabetes type 2, hypertension, GERD, cholecystectomy, C-sections Limitations by social determinants of health: None Differential diagnosis: Gastroenteritis, surgical pathology, dehydration, other. Vital signs: Stable, remained stable here in the ER. Labs ( independently ordered and interpreted by me ): Chemistry panel shows an elevated BUN to creatinine ratio consistent with dehydration, otherwise unremarkable electrolytes. Liver enzymes are normal. CK is normal. Kidney function normal. White count is elevated 15 K, left shift. No bands. Urinalysis shows high specific gravity otherwise unremarkable. Lipase normal. CT abdomen and pelvis ( independently interpreted by me ): No acute abnormalities or surgical pathology. Treatment in ED: 1 L lactated Ringer's, Zofran. Symptoms most consistent with a viral gastritis/gastroenteritis. Patient has sick contact with similar symptoms. She was mildly dehydrated which was replaced here in the ER. She was no longer vomiting. She was p.o. tolerant. No surgical pathology no signs of SIRS or sepsis or significant dehydration. We will DC with the ondansetron and Bentyl recommend PCP follow up as needed. Patient agrees with the plan. ED Course Orders Procedure Category Date Status Time Cbc With Differential LAB 05/11/24 Complete 09:04 Ct Abdomen/Pelvis CT 05/11/24 Resulted W/Contrast 09:04 Creatine Kinase, Total LAB 05/11/24 Complete 09:04 Lipase LAB 05/11/24 Complete 09:04 Basic Metabolic Panel LAB 05/11/24 Complete 09:04 Hepatic Function Panel LAB 05/11/24 Complete 09:04 Lactated Ringers PHA 05/11/24 Complete 1000ml (Lactated 09:30 Ondansetron 4mg Inj PHA 05/11/24 Complete (Zofran 4mg Inj) 09:30 Urinalysis Profile LAB 05/11/24 Complete 10:17 Iohexol (Omnipaque) PHA 05/11/24 Complete 11:29 Current Medications Medications (Trade) Dose Ordered Sig/Rosy Route PRN Reason Start Time Stop Time Status Last Admin Dose Admin Iohexol (Omnipaque) 35,000 mg STK-MED ONCE IV 05/11/24 11:29 05/11/24 11:29 DC Lactated Ringer's 1,000 ml @ 0 mls/hr ONCE ONCE IV 05/11/24 09:30 05/11/24 09:31 DC 05/11/24 10:34 Ondansetron HCl (zoFRAN 4MG INJ) 4 mg ONCE ONCE IVP 05/11/24 09:30 05/11/24 09:31 DC 05/11/24 10:34 Vital Signs Date Time Temp Pulse Resp B/P (MAP) Pulse Ox O2 Delivery O2 Flow Rate FiO2 05/11/24 10:37 83 16 131/76 98 Room Air* 0 21 05/11/24 09:15 87 16 150/76 99 Room Air* 0 21 05/11/24 08:57 98.2 91 20 138/93 99 Room Air 0 DX & DISP Disposition: Discharge Departure Impression: Primary Impression: Gastroenteritis Additional Impression: Mild dehydration Condition: Stable Scripts Dicyclomine HCl (Bentyl) 20 Mg Tab 1 TAB PO BID for irritable bowel symptoms for 5 Days, #20 TAB 0 Refills Prov: JACINTA HOLCOMB DO 05/11/24 Ondansetron (Ondansetron Odt) 4 Mg Tab.rapdis 1 TAB PO Q6HPRN PRN for nausea/vomiting for 3 Days, #9 TAB 0 Refills Prov: JACINTA HOLCOMB DO 05/11/24 Additional Instructions: Your symptoms are consistent with a gastroenteritis, which is often a viral infection that we will go away on its own. Your vital signs have been stable. Your blood work ( CBC, BMP, liver function tests, lipase ) shows mild dehydration but is otherwise unremarkable. The CT scan of your abdomen and pelvis does not show any dangerous findings. I have prescribed ondansetron dissolvable tabs to use as needed for nausea and vomiting. I have prescribed Bentyl tabs to use as needed for abdominal cramping. Be sure to drink plenty of liquids. An electrolyte solution such as Gatorade as good choice. Start with the BR a T ( bananas, rice, applesauce, toast ) diet. Advance her diet slowly as tolerated after that. If you continue with symptoms for longer than two or three days, I recommend that you follow up with the primary doctor for re-evaluation. Please return to the emergency department if you have any concerns. Referrals: DC GRIFFIN BAGGAGE AGENT SUPERVISOR (PCP) JACINTA HOLCOMB DO May 11, 2024 09:04
[2024-05-11 09:25] LABS: BASOPHILS # (AUTO) 0.03 K/uL (0.00-0.20); BASOPHILS % (AUTO) 0.2 % (0.0-5.0); EOSINOPHILS # (AUTO) 0.07 K/uL (0.00-0.70); EOSINOPHILS % (AUTO) 0.5 % (0.0-8.0); HEMATOCRIT 43.9 % (36-48); IMMATURE GRANULOCYTE ABSOLUTE 0.11 K/uL (0-1); LYMPHOCYTES # (AUTO) 0.7 K/uL (1.0-4.8); LYMPHOCYTES % (AUTO) 4.8 % (21.0-51.0); MEAN CORPUSCULAR HEMOGLOBIN 30.5 pg (27.0-33.0); MEAN CORPUSCULAR HGB CONC 33.9 g/dL (32.0-36.0); MONOCYTES # (AUTO) 0.9 K/uL (0.1-1.0); MONOCYTES % (AUTO) 6.2 % (3.0-13.0); NEUTROPHILS # (AUTO) 13.2 K/uL (1.8-7.7); NEUTROPHILS % (AUTO) 87.6 % (40.0-77.0); PLATELET COUNT (AUTO) 252 K/uL (130-400); RED BLOOD CELL COUNT(AUTO) 4.88 MIL/uL (4.00-5.50); RED CELL DISTRIBUTION WIDTH 12.3 % (11.0-15.5); WHITE BLOOD COUNT (AUTO) 15.1 K/uL (4.8-10.8)
[2024-05-11 09:39] LABS: CREATININE 0.7 mg/dL (0.5-1.0); POTASSIUM 3.6 mmol/L (3.5-5.1)
[2024-05-11 09:45] LABS: ALBUMIN 3.9 g/dL (3.5-5.0); BILIRUBIN,DIRECT 0.2 mg/dL (0.0-0.3); BILIRUBIN,TOTAL 0.9 mg/dL (0.2-1.0); TOTAL PROTEIN, SERUM 7.4 g/dL (6.0-8.3)
[2024-05-11 10:30] LABS: APPEARANCE,URINE CLEAR (CLEAR); BILIRUBIN,URINE NEGATIVE (NEGATIVE); COLOR,URINE YELLOW (YELLOW); GLUCOSE, URINE (UA) NEGATIVE (NEGATIVE); KETONES,URINE NEGATIVE (NEGATIVE); LEUKOCYTE ESTERASE ,URINE 25 Leu/uL (NEGATIVE); NITRATE,URINE NEGATIVE (NEGATIVE); OCCULT BLOOD,URINE NEGATIVE (NEGATIVE); PROTEIN,URINE 10 mg/dL (NEGATIVE); UROBILINOGEN,URINE 0.2 mg/dL (0.2-1.0)
[2024-05-11] MEDS: ondanSETRON 4MG INJ IVP ONE (10:34)
[2024-05-11] MEDS: LACTATED RINGERS 1000ML 1,000 ML IV ONE (10:34)
[2024-05-11 10:35] LABS: ADD UA MICROSCOPIC YES
[2024-05-11 10:51] LABS: MUCUS,URINE RARE LPF (None Seen); SQUAMOUS EPITHELIAL CELL,UR FEW /HPF (0-2)
[2024-05-11] MEDS ORDERED: IOHEXOL 350 MG/ML 100ML INFUS..BTL IV ONE (11:29)
--- NOTE | 2024-05-11 11:57 | HMCIMG ---
CT ABDOMEN/PELVIS W/CONTRAST HISTORY: Periumbilical pain COMPARISON: None TECHNIQUE: Multiple sequential axial images of the abdomen and pelvis were obtained from the dome of the diaphragm through symphysis pubis. Patient was given 100 cc of Omnipaque through intravenous route. Oral contrast was not given. FINDINGS: No pleural effusion is seen bilaterally. There is no evidence of parenchymal disease or pulmonary nodule of the visualized lower lungs. Degenerative changes of the thoracolumbar spine are present. The heart is not enlarged. Liver measures 18 cm. Postcholecystectomy changes are seen. Uterus is enlarged suggestive of fibroid uterus. There may be a large right hepatic fibroid measuring 6.6 x 6 cm. The liver, spleen, adrenal glands and pancreas are unremarkable. There is no evidence of hydronephrosis bilaterally. No evidence of renal stone is seen. There is mild diverticulosis. Fecal material is seen in the colon. There are normal size retroperitoneal and mesenteric lymph nodes. No ascites is seen. Atherosclerotic changes are present. There is small periumbilical hernia with fat content. Pelvic sidewalls are symmetric bilaterally. Bladder is well distended without wall thickening. IMPRESSION: 1. No ascites is seen. No bowel obstruction is seen. There is mild diverticulosis. Fibroid uterus. CT was performed with one or more following dose reduction techniques: automated exposure control, adjustment of the mA and kv according to patient's size, or use of a iterative reconstruction technique.
[2024-05-11] MEDS ORDERED: DICY20TA2 PO (12:10)
[2024-05-11] MEDS ORDERED: ONDA-243 PO (12:10)
[2024-05-11 12:52] VITALS: BP 134/73; PULSE 84; RESP 16; TEMP 98.2; O2SAT 99
== END 2024-05-11 12:55 | disposition home or self-care (01) ==
LOC: EDH 08:57
DX: K52.9 Noninfective gastroenteritis and colitis, unspecified (principal); E86.0 Dehydration; R11.10 Vomiting, unspecified; E11.9 Type 2 diabetes mellitus without complications; I10 Essential (primary) hypertension; K21.9 Gastro-esophageal reflux disease without esophagitis; Z79.899 Other long term (current) drug therapy; Z87.19 Personal history of other diseases of the digestive system; Z90.49 Acquired absence of other specified parts of digestive tract; Z98.890 Other specified postprocedural states
CPT/HCPCS: 99284; 74177; 96374; 96361; 82550; 80076; 80048; 83690; 85025; 81001; 36415; J7120; J2405; Q9967